=== PATIENT | male | born 1970 | race Two or more races ===

== ENCOUNTER 2025-07-09 07:43 | Day surgery (SDC) | payer OTHER, MEDICAID ==
[2025-07-04 08:43] LABS: Hematocrit 33.1 % (41.0-53.0); Hemoglobin 11.3 g/dL (13.5-17.5); Mean Corpuscular Hemoglobin 29.1 pg (28.0-32.0); Mean Corpuscular Volume 84.9 fL (80.0-100.0); Nucleated Red Blood Cells % 0.0 %
[2025-07-04 08:50] LABS: Urine Protein, UAD 2+ (Negative)
[2025-07-04 08:56] LABS: Alanine Aminotransferase 24 U/L (7-40); Albumin 4.0 g/dL (3.2-4.8); Alkaline Phosphatase 92 U/L (46-116); Anion Gap 9 (5-15); BUN/Creatinine Ratio 13.4 (10.0-20.0); Calcium 9.4 mg/dL (8.7-10.4); Carbon Dioxide 27 mmol/L (20-31); Chloride 101 mmol/L (98-107); INR 0.99 (0.9-1.15); Partial Thromboplastin Time 24.5 SEC (24.5-34.5); Potassium 4.4 mmol/L (3.5-5.1); Prothrombin Time 10.5 sec (9.3-11.8); Sodium 137 mmol/L (136-145); Total Protein 7.3 g/dL (5.7-8.2)
[2025-07-04 08:57] LABS: Bilirubin, Total 0.5 mg/dL (0.2-1.0)
[2025-07-04 09:05] LABS: Blood Urea Nitrogen 31 mg/dL (9-23); Glucose 148 mg/dL (74-106)
[~2025-07-09] VITALS: Ht 167.6 cm; Wt 81.6 kg
[~2025-07-09 07:43] MED LIST: GABA-1250 PO; HYDR1TAB97 PO; INSU100I2 SC; INSU1INJ19 SC; SITA50TA PO; TIZA4CAP PO
[2025-07-09] MEDS ORDERED: BUPIVACAINE HCL 50 ML ONE (08:06)
[2025-07-09] MEDS ORDERED: BUPIVACAINE 0.25% INJ 50ML VIAL ONE (08:58)
[2025-07-09] MEDS: ceFAZolin 2 GM/D5W50ml 50 ML IV ONE (09:12)
[2025-07-09] MEDS ORDERED: fentaNYL CITRATE 100 MCG/2 ML VL ONE (09:13)
[2025-07-09] MEDS ORDERED: MIDAZOLAM HCL 2MG/2ML 2ml VIAL (1mg/ml) ONE (09:13)
[2025-07-09] MEDS ORDERED: LIDOCAINE 2% (LOCAL ANESTH.) PF 5ml SDV ONE (09:14)
[2025-07-09] MEDS ORDERED: ONDANSETRON HCL 4 MG/2 ML VIAL ONE (09:14)
[2025-07-09] MEDS ORDERED: METOCLOPRAMIDE HCL 5MG/ml INJ 2ml VIAL ONE (09:14)
[2025-07-09] MEDS ORDERED: PROPOFOL 10 MG/ML 20 ML IV ONE (09:15)
[2025-07-09] MEDS: LIDOCAINE 1% HCL (LOCAL ANESTH.) INJ 20ML MDV ONE (09:20)
[2025-07-09 09:26] VITALS: PULSE 74; RESP 16; TEMP 97.2; O2SAT 100
--- NOTE | 2025-07-09 09:29 | DVHOP2 ---
Operative Report - 2 Report Details Date: 07/09/25 Preop Diagnosis: 1. Right foot short achilles 2. Right foot chronic ulcer 3. Right foot pain 4. History of TMA Postop Diagnosis: Same as preop Surgeon: Aakash Fernando MD Anesthesiologist: See anesthesia Anesthesia: Mac Consent: The patient was informed of the risks and benefits of the procedure. These include but are not limited to complications of anesthesia, postoperative infection, incomplete relief of symptoms, recurrence of symptoms, damage to blood vessels, nerves and tendons, deep venous thrombosis, pulmonary embolism and possible need for repeat surgery in the future. Complications: None Estimated Blood Loss: Minimal Fluids: See anesthesia Findings: Consistent with diagnosis Indications for Surgery: Worsening wound with contracture Name of Procedure Performed 1. Right foot CRYSTAL (49086) Procedure Details Procedure Details: PRE-PROCEDURE INFORMATION: In the pre-op holding area, the extremity to be operated on was clearly marked and the patient verified correct laterality of the marking. The patient was transferred to the OR table and placed in a supine position. A timeout was performed in which identification of the correct patient, procedure, location, and materials was done. The right foot and leg were prepped and draped in normal sterile fashion . DESCRIPTION OF PROCEDURE: Attention was directed to the right posterior leg where the Achilles tendon was located. Using a marking pen, 2 lines were drawn on the distal and proximal medial aspect of the Achilles tendon and 1 on the la teral side. Using a 15 blade, a tenotomy was performed to allow for adequate extension of the Achilles tendon. It was noted that prior to the procedure there was contracture of the right side, after the procedure adequate motion of the ankle joint was performed. The incisions were closed with 4-0 nylon. All surgical wounds were irrigated copiously with saline and closed in layers with the aforementioned suture material. A dry sterile dressing was placed on the surgical extremity. The patient was placed in a cam boot POSTOPERATIVE INFORMATION: The patient tolerated the above noted procedure and anesthesia well and was transferred to the PACU with vital signs stable, and vascular status intact with capillary refill intact to all digits. Postoperative instructions reviewed in detail with the patient with written instructions provided. Patient will return to clinic in approximately 10-14 days for first postoperative visit. Patient has the number of the clinic and was instructed to call prior to that time should any problems, questions, or concerns arise. Condition Good Disposition Home Visit Coding Podiatry Date of Service if different f: Jul 09, 2025 Billing Provider: AAKASH FERNANDO DPM Podiatry Common Visit Codes: PROCEDURE ONLY AAKASH FERNANDO DPM Jul 09, 2025 09:29
[2025-07-09 09:39] VITALS: PULSE 75; RESP 12; O2SAT 100
[2025-07-09] MEDS ORDERED: KETOROLAC TROMETH 30 MG/ML 1ML VIAL IV ONE (09:45)
[2025-07-09] MEDS ORDERED: HYDROmorphone HCL 2 MG/ML VL/or syr IV PRN (09:45)
[2025-07-09] MEDS ORDERED: ONDANSETRON HCL 4 MG/2 ML VIAL IV PRN (09:45)
[2025-07-09 10:10] VITALS: BP 147/90; PULSE 70; RESP 12; O2SAT 98
== END 2025-07-09 10:26 | disposition home or self-care (01) ==
LOC: SUR 07:43
PROVIDERS: ATTEND Podiatrist
DX: M67.01 Short Achilles tendon (acquired), right ankle (principal); L97.519 Non-pressure chronic ulcer of other part of right foot with unspecified severity; M79.671 Pain in right foot; E11.22 Type 2 diabetes mellitus with diabetic chronic kidney disease; N18.30 Chronic kidney disease, stage 3 unspecified; E66.9 Obesity, unspecified; Z79.84 Long term (current) use of oral hypoglycemic drugs; Z79.899 Other long term (current) drug therapy
CPT/HCPCS: 27685; 36415; 80053; 81003; 82962; 85025; 85610; 85730; J0690; J2003; J2250; J2405; J2704; J2765; J3010; J3490